=== PATIENT | male | born 2005 | race Caucasian/White ===

== ENCOUNTER → 2025-08-28 12:57 | Outpatient (BNVA) | payer BC, SELFPAY | PROVIDERS: Family Provider Family Medicine; Visit Provider Family Medicine | DX: E03.9 Hypothyroidism, unspecified (principal); R56.9 Unspecified convulsions | CPT/HCPCS: 80053; 84443; 85025 ==

== ENCOUNTER 2025-09-11 07:51 | Outpatient (CLI) | payer BC, SELFPAY ==
--- NOTE | 2025-09-11 08:00 | MR_ITS ---
WS: [id number] MRI HEAD WITH CONTRAST TECHNIQUE: Sagittal T1, T2 axial, T2 axial FLAIR, axial susceptibility weighted imaging, axial diffusion weighted images, and coronal T2 images were obtained. Pre and post-T1 axial and post T1 coronal images. ADC and FSPGR images. CLINICAL INFORMATION: R56.9 - Unspecified convulsions COMPARISON: None. 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 Normal fourth ventricle. No hydrocephalus. Mild crowding at the foramen magnum. Cerebellar tonsils measure approximately 8 mm below the foramen magnum. No hydrocephalus. Recommend follow-up cervical spine MRI to exclude syrinx in the cervical cord. No restricted diffusion to suggest acute ischemia. No suspicious intracranial signal abnormalities. Normal guzman-white differentiation. No hydrocephalus. Normal vascular flow voids at the skull base. No extra-axial fluid collections. Mild mucosal thickening in the paranasal sinuses. Small retention cyst in the posterior nasopharynx measuring 9 mm. Mastoid air cells are well aerated. No hemosiderin. Normal optic chiasm and pituitary infundibulum. Temporal and hippocampal formations are normal in appearance. No evidence of mesial temporal sclerosis. No abnormal gadolinium enhancement. MR/MR head wo/w con [id number] IMPRESSION: 1. Temporal lobes are normal in appearance. No evidence of mesial temporal scl erosis. 2. 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 Mil d crowding of the foramen magnum. No hydrocephalus. Normal fourth ventricle. Re commend follow-up cervical spine MRI to exclude syrinx in the cervical cord. 3. No suspicious intracranial signal abnormalities. 4. No abnormal intracranial enhancement.
[2025-09-11] MEDS: gadobenate dimeglumine 20 mL vial IV (08:54)
== END 2025-09-11 07:52 | disposition home or self-care (01) ==
LOC: RAD 07:53
PROVIDERS: Family Provider Family Medicine; PCP Family Medicine; Visit Provider Family Medicine
DX: R56.9 Unspecified convulsions (principal); G93.5 Compression of brain; J34.89 Other specified disorders of nose and nasal sinuses; J34.1 Cyst and mucocele of nose and nasal sinus
CPT/HCPCS: 70553

== ENCOUNTER 2025-10-16 07:15 | Outpatient (CLI) | payer BC, SELFPAY ==
--- NOTE | 2025-10-16 07:15 | MR_ITS ---
WS: [id number] MRI CERVICAL SPINE NONCONTRAST HISTORY: Chiari 1 malformation COMPARISON: MRI brain 09/11/2025 Technique: Multiplanar, multisequence noncontrast imaging of the cervical spine. Mild straightening of the normal cervical lordosis and reversal centered at C5. Normal signal in the cord. No syrinx. No cord atrophy or enlargement. Reidentified is a recently described Chiari I malformation. RIGHT cerebellar tonsil extends 9 mm below the foramen magnum. There is mild pointing and inferior displacement of the cerebellar tonsils and crowding at the foramen magnum. Fourth ventricle is normal size. C2-C3: Normal. C3-C4: Normal. C4-C5: Very small foraminal osteophytes. No stenosis. C5-C6: Normal. C6-C7: Small LEFT foraminal osteophyte without stenosis. C7-T1: Normal. Paraspinal soft tissue are normal. MR/MR cervical spin wo con* [id number] IMPRESSION: 1. No cervical cord syrinx. 2. No cord enlargement or atrophy. 3. Chiari I malformation reidentified. 4. No significant central or foraminal stenosis.
== END 2025-10-16 07:16 | disposition home or self-care (01) ==
PROVIDERS: PCP Family Medicine; Visit Provider Family Medicine
DX: G93.5 Compression of brain (principal); M25.78 Osteophyte, vertebrae; M40.202 Unspecified kyphosis, cervical region
CPT/HCPCS: 72141